=== PATIENT | female | born 1975 | race Caucasian/White ===

== ENCOUNTER 2016-10-25 09:41 | Emergency (ER) | payer OTHER ==
[~2016-10-25] VITALS: Wt 88.0 kg
[~2016-10-25 09:41] MED LIST: ACET500C5 PO; ALBU8.5H3 INH; CETI10CA PO; GUAI118L22 PO; GUAI118L94 PO; HTN meds; HYDR-3498 PO; IBUP-1542 PO; TAMS-14 PO
[2016-10-25] MEDS ORDERED: ALBUTEROL 0.5% (NEB) 2.5 MG/0.5 ML AMP HHN STA (11:13)
[2016-10-25] MEDS ORDERED: ALBU18HF INHALATION (11:24)
[2016-10-25] MEDS ORDERED: AZIT250T94 PO (11:24)
[2016-10-25] MEDS ORDERED: PRED20TA PO (11:24)
--- NOTE | 2016-10-25 11:27 | ERD ---
ER Documentation Chief Complaint Date/Time DATE: 10/25/16 TIME: 11:26 Chief Complaint cough and congestion for the past wk. mild sob. HPI This 40-year-old female presents with a history of a cough for approximately last month. She feels like she might be wheezing. She has productive sputum. She denies fevers, chest pain, vomiting, abdominal pain. She saw her primary doctor but she is not improved with recommendations for [id number] cough syrup. ROS All systems reviewed and are negative except as per history of present illness. Medications Home Meds Active Scripts Azithromycin* (Zithromax*) 250 Mg Tablet, 250 MG PO .ZPACK DIRECTED, #6 TAB TAKE 500 MG (2 TABS) THE FIRST DAY THEN 250 MG (1 TAB) DAYS 2-5 Prov:SYLVESTER DUTTON MD 10/25/16 Albuterol Sulfate* (Ventolin HFA*) 18 Gm Hfa.aer.ad, 2 PUFF INHALATION Q4H, #1 INHALER Prov:SYLVESTER DUTTON MD 10/25/16 Prednisone* (Prednisone*) 20 Mg Tab, 40 MG PO DAILY for 4 Days, TAB Start October 26, 2016 Prov:SYLVESTER DUTTON MD 10/25/16 Ibuprofen* (Motrin*) 600 Mg Tab, 600 MG PO Q6H Y for PAIN AND OR ELEVATED TEMP, #30 TAB Prov:DAVID ROJAS NP 11/04/15 Cetirizine Hcl* (Zyrtec*) 10 Mg Capsule, 10 MG PO DAILY, #30 TAB.CHEW Prov:DAVID ROJAS NP 11/04/15 Guaifenesin-Codeine Phosphate* (Guaifenesin* with Codeine Liq) 120 Ml Liquid, 5 ML PO Q4H for COUGH, #60 ML Prov:DAVID ROJAS NP 11/04/15 Albuterol Sulfate* (Proair HFA*) 8.5 Gm Hfa.aer.ad, 2 PUFF INH Q4, #1 INHALER Prov:CECI MILLER NP 09/09/15 Acetaminophen* (Tylophen*) 500 Mg Capsule, 500 MG PO Q6H Y for PAIN AND OR ELEVATED TEMP, #15 TAB Prov:CECI MILLER NP 09/09/15 Guaifenesin/Codeine Phosphate (CHERATUSSIN AC SYRUP) 118 Ml Liquid, 10 ML PO Q6 , #240 Prov:CECI MILLER [employer] 09/09/15 Ibuprofen* (Ibuprofen*) 600 Mg Tablet, 600 MG PO Q6 for PAIN, #30 TAB Prov:RENASHAHRAM KAUR 06/04/15 Tamsulosin Hcl* (Flomax*) 0.4 Mg Cap.er.24h, 0.4 MG PO HS, #20 CAP Prov:RENASHAHRAM KAUR 06/04/15 Hydrocodone Bit-Acetaminophen* ([place]*) 5-325 Mg Tab, 1 TAB PO Q4H Y for PAIN, # 20 TAB Prov:RENASHAHRAM KAUR 06/04/15 Reported Medications [HTN meds] Unknown Strength No Conflict Check 11/04/15 [none] No Conflict Check 06/10/12 Allergies Allergies: Coded Allergies: No Known Allergy (Verified , 01/01/14) PMhx/Soc History of Surgery: Yes (c/section x2) Anesthesia Reaction: No Hx Neurological Disorder: No Hx Respiratory Disorders: No Hx Cardiac Disorders: Yes (HTN) Hx Psychiatric Problems: No Hx Miscellaneous Medical Probl: No Hx Alcohol Use: No Hx Substance Use: No Hx Tobacco Use: No Physical Exam Vitals Vital Signs Date Time Temp Pulse Resp B/P Pulse Ox O2 Delivery O2 Flow Rate FiO2 10/25/16 09:43 98.6 83 21 167/88 98 Physical Exam Const: [] Alert, [id number], speaking complete sentences. Head: Atraumatic Eyes: Normal Conjunctiva ENT: Normal External Ears, Nose and Mouth. Left TM shows yellow fluid and redness and decreased light reflex. Neck: Full range of motion..~ No meningismus. Resp: Clear to auscultation bilaterally. Scattered wheezing bilaterally without appreciable rales or retractions. Cardio: Regular rate and rhythm, no murmurs Abd: Soft, non tender, non distended. Normal bowel sounds Skin: No petechiae or rashes Back: No midline or flank tenderness Ext: No cyanosis, or edema Neur: Awake and alert Psych: Normal Mood and Affect Results 24 hrs Current Medications Medications (Trade) Dose Ordered Sig/Sowmya Route PRN Reason Start Time Stop Time Status Last Admin Dose Admin Prednisone (Prednisone) 60 mg ONCE ONCE PO 10/25/16 11:30 10/25/16 11:31 Albuterol (Proventil 0.5% (Neb)) 5 mg ONCE STAT HHN 10/25/16 11:13 10/25/16 11:15 DC Procedures/MDM Patient was given albuterol treatment 1, prednisone 60 mg by mouth. Patient maintain normal saturations throughout the ED course without signs of respiratory distress or hypoxemia. Patient had improved breath sounds after observation treatment. Patient has signs and symptoms of bronchitis with wheezing without evidence of hypoxemia signs or symptoms of pneumonia. She will be treated with Zithromax Ventolin and the course prednisone. The patient was stable with no new complaints during the ER course. Clinically, there is no current evidence to suggest meningitis, sepsis, acute abdomen, pneumonia, acute coronary syndrome, pulmonary embolism, or any other emergent condition appearing to require further evaluation or hospitalization. The patient should certainly return for any new or worsening symptoms per the aftercare instructions. They should otherwise follow-up with her primary care doctor for reevaluation this week. Departure Diagnosis: Primary Impression: Otitis media Otitis media type: suppurative Laterality: left Chronicity: acute Recurrence: not specified as recurrent Spontaneous tympanic membrane rupture: without spontaneous rupture Qualified Code: H66.002 - Acute suppurative otitis media of left ear without spontaneous rupture of tympanic membrane, recurrence not specified Additional Impression: URI (upper respiratory infection) URI type: unspecified URI Qualified Code: J06.9 - Upper respiratory tract infection, unspecified type Condition: Stable Patient Instructions: Bronchitis With Wheezing (Adult), Otitis Media, Abx Tx ( Adult) Additional Instructions: Recheck for new or worsening symptoms with primary care doctor. SYLVESTER DUTTON MD Oct 25, 2016 11:27
[2016-10-25] MEDS ORDERED: predniSONE 20 MG TAB PO ONE (11:30)
== END 2016-10-25 13:08 | disposition home or self-care (01) ==
LOC: FTE 09:41
DX: H66.002 Acute suppurative otitis media without spontaneous rupture of ear drum, left ear (principal); J06.9 Acute upper respiratory infection, unspecified; I10 Essential (primary) hypertension
CPT/HCPCS: 94664; J7512; Z7502; Z7610

== ENCOUNTER 2016-11-03 08:09 | Emergency (ER) | payer OTHER ==
[~2016-11-03] VITALS: Ht 152.4 cm; Wt 89.8 kg
[~2016-11-03 08:09] MED LIST changes: +ALBU18HF INHALATION; +AZIT250T94 PO; +PRED20TA PO
[2016-11-03 08:12] VITALS: Ht 152.4 cm; Wt 89.8 kg
[2016-11-03] MEDS ORDERED: ALBUTEROL 0.083% (NEB) 2.5 MG/3 ML AMP NEB STA (08:39)
--- NOTE | 2016-11-03 08:50 | ERD ---
ER Documentation Chief Complaint Date/Time DATE: 11/03/16 Chief Complaint Left ear pain, Cough HPI The patient is a 40-year-old female who presents to the Emergency Department with complaint of a cough for the past month, and left ear pain. The patient reports that her cough is productive of yellow colored sputum, and is associated with intermittent wheezing. The cough tends to be worse at night. She denies any fevers, chills, chest pain, palpitations, shortness of breath. Denies vomiting, abdominal pain or diarrhea. The patient notes that after initial onset of her cough, she began to take [id number] cough syrup, with minimal alleviation of symptoms. She also notes development of left-sided ear pain, which has been persistent for the past 8 days. The patient was seen in the Emergency Department on 10/25/2016 for these symptoms, and was diagnosed with upper respiratory infection/bronchitis and acute otitis media. The patient was discharged home with prescriptions for Ventolin HFA, prednisone and Z-Nitesh. The patient notes that she has taken all antibiotics the medications as prescribed, but continues to experience the left sided ear pain. The pain as pulsating and aching in nature, and radiates into head/occiput. She denies any otorrhea or bloody discharge. Denies any change in hearing, dizziness, dizziness , weakness. She rates her current ear pain as 4 out of 10, though notes that she has not tried any medication for pain relief. The patient also notes that despite taking the prednisone, and intermittently using the inhaler, she still continues to experience intermittent wheezing. She is requesting a breathing treatment at this time. However, denies any chest tightness, chest pain or shortness of breath at this time. Denies neck stiffness. Denies new rashes. Denies sore throat. Denies lower extremity edema. Denies calf swelling or calf tenderness. Denies recent travel. Denies any sick contacts. ROS All systems reviewed and are negative except as per history of present illness. Medications Home Meds Active Scripts Ibuprofen* (Motrin*) 600 Mg Tab, 600 MG PO Q6, #30 TAB Prov:SHAHRAM CHASE PA-C 11/03/16 Amoxicillin/Potassium Clav (Amox-Clav 875-125 mg Tablet) 875-125 mg Tab, 1 TAB PO BID for 10 Days, #20 TAB Prov:SHAHRAM CHASE PA-C 11/03/16 Azithromycin* (Zithromax*) 250 Mg Tablet, 250 MG PO .[place] DIRECTED, #6 TAB TAKE 500 MG (2 TABS) THE FIRST DAY THEN 250 MG (1 TAB) DAYS 2-5 Prov:SYLVESTER DUTTON MD 10/25/16 Albuterol Sulfate* (Ventolin HFA*) 18 Gm Hfa.aer.ad, 2 PUFF INHALATION Q4H, #1 INHALER Prov:SYLVESTER DUTTON MD 10/25/16 Prednisone* (Prednisone*) 20 Mg Tab, 40 MG PO DAILY for 4 Days, TAB Start October 26, 2016 Prov:SYLVESTER DUTTON MD 10/25/16 Ibuprofen* (Motrin*) 600 Mg Tab, 600 MG PO Q6H Y for PAIN AND OR ELEVATED TEMP, #30 TAB Prov:DAVID ROJAS NP 11/04/15 Cetirizine Hcl* (Zyrtec*) 10 Mg Capsule, 10 MG PO DAILY, #30 TAB.CHEW Prov:DAVID ROJAS NP 11/04/15 Guaifenesin-Codeine Phosphate* (Guaifenesin* with Codeine Liq) 120 Ml Liquid, 5 ML PO Q4H for COUGH, #60 ML Prov:DAVID ROJAS NP 11/04/15 Albuterol Sulfate* (Proair HFA*) 8.5 Gm Hfa.aer.ad, 2 PUFF INH Q4, #1 INHALER Prov:CECI MILLER NP 09/09/15 Acetaminophen* (Tylophen*) 500 Mg Capsule, 500 MG PO Q6H Y for PAIN AND OR ELEVATED TEMP, #15 TAB Prov:CECI MILLER NP 09/09/15 Guaifenesin/Codeine Phosphate (CHERATUSSIN AC SYRUP) 118 Ml Liquid, 10 ML PO Q6 , #240 Prov:CECI MILLER NP 09/09/15 Ibuprofen* (Ibuprofen*) 600 Mg Tablet, 600 MG PO Q6 for PAIN, #30 TAB Prov:SHAHRAM CHASE PA-C 06/04/15 Tamsulosin Hcl* (Flomax*) 0.4 Mg Cap.er.24h, 0.4 MG PO HS, #20 CAP Prov:SHAHRAM CHASE RAVINDERToshaAnu 06/04/15 Hydrocodone Bit-Acetaminophen* ([place]*) 5-325 Mg Tab, 1 TAB PO Q4H Y for PAIN, # 20 TAB Prov:SHAHRAM CHASE RAVINDERTita 06/04/15 Reported Medications [HTN meds] Unknown Strength No Conflict Check 11/04/15 [none] No Conflict Check 06/10/12 Allergies Allergies: Coded Allergies: No Known Allergy (Verified , 11/03/16) PMhx/Soc History of Surgery: Yes (c/section x2) Anesthesia Reaction: No Hx Neurological Disorder: No Hx Respiratory Disorders: No Hx Cardiac Disorders: Yes (HTN) Hx Psychiatric Problems: No Hx Miscellaneous Medical Probl: No Hx Alcohol Use: No Hx Substance Use: No Hx Tobacco Use: No Smoking Status: Never smoker Physical Exam Vitals Vital Signs Date Time Temp Pulse Resp B/P Pulse Ox O2 Delivery O2 Flow Rate FiO2 11/03/16 09:54 98.1 87 18 132/78 98 Room Air 11/03/16 09:01 83 18 98 21 11/03/16 08:12 98.1 90 18 145/90 99 Physical Exam GENERAL: Well-developed, well-nourished, female, in no acute distress HEENT: Head is normocephalic, atraumatic. No scleral pallor or icterus. Pupils equal, round and reactive to light. Extraocular movements intact. Conjunctiva pink. Left tympanic membrane is erythematous with dulling of the light reflex, and yellow-colored fluid visualized. No perforation. Right tympanic membrane is clear, with no erythema, effusion or dulling of the light reflex. No mastoid tenderness bilaterally. No otorrhea or bloody discharge. No pharyngeal erythema or exudates. Uvula is midline. No trismus. No stridor. No excessive drooling. Phonation is normal. NECK: Supple. No masses, no tenderness, no lymphadenopathy. Trachea midline. No nuchal rigidity. No meningismus. RESPIRATORY: Scattered wheezing bilaterally, with no rales or rhonchi. No retractions. No nasal flaring. No accessory muscle use. Symmetric expansion. CARDIOVASCULAR: Regular rate and rhythm. S1 and S2 normal. No murmurs. Distal pulses are palpable, 2+ bilaterally. Capillary refill is less than 2 seconds. . EXTREMITIES: No clubbing, cyanosis, or edema. Normal skin perfusion. Moving all extremities. Muscle tone is normal. No focal swelling or erythema. NEUROLOGIC: The patient is alert, awake, and oriented x 3. No focal neurologic deficits. INTEGUMENT: Skin is intact. Warm and dry. No rashes, no petechiae present. PSYCHIATRIC: Normal mood and mentation. Results 24 hrs Current Medications Medications (Trade) Dose Ordered Sig/Sowmya Route PRN Reason Start Time Stop Time Status Last Admin Dose Admin Ibuprofen (Motrin) 600 mg ONCE ONCE PO 11/03/16 09:00 11/03/16 09:01 DC 11/03/16 08:48 Albuterol (Proventil 0.083% (Neb)) 2.5 mg ONCE STAT NEB 11/03/16 08:39 11/03/16 08:42 DC 11/03/16 09:00 Procedures/MDM DIAGNOSTIC TESTS AND INTERPRETATION: PROCEDURE: Chest radiograph series. CLINICAL INDICATION: Cough TECHNIQUE: PA and lateral chest x-ray. COMPARISON: Chest radiograph 11/04/2015 at 03:42 a.m. FINDINGS:The cardiomediastinal silhouette is unremarkable. The lungs and costophrenic angles are clear. The osseous structures are unremarkable. IMPRESSION: Unremarkable chest radiograph series. .Darell Urbano MD, MD Date Time Electronically viewed and signed by .Darell Urbano MD, MD on 2016 09:33 Microbiology INFLUENZA A & B BY EIA Final INFLU A&B BY EIA INFLUENZA A NEGATIVE (Ref Range Neg) INFLUENZA B NEGATIVE (Ref Range Neg) MEDICAL DECISION MAKING: This is a 40-year-old female presenting to the emergency department with complaint of cough, wheezing and left ear pain. Vital signs were stable. On physical examination, the patient had scattered wheezing noted, which cleared after breathing treatment of albuterol provided by respiratory therapy. Additionally, her left tympanic membrane was erythematous, with dulling of the light reflex. Yellow fluid was noted behind the tympanic membrane. Otherwise, no rales or rhonchi. No mastoid tenderness. No perforation noted. No nuchal rigidity. No other significant abnormalities were noted on physical examination. No nasal flaring or signs of respiratory distress. Differential diagnosis includes, but is not limited to, pneumonia, acute respiratory distress syndrome, sinusitis, foreign body, pertussis, upper respiratory infection, asthma, allergic rhinitis, GERD, bronchitis, allergic reaction, influenza, otitis media, otitis externa, meningitis, pharyngitis. No significant acute abnormalities were noted on the diagnostic chest x-ray performed. Influenza A/B negative. No evidence of acute sepsis, bacteremia, dehydration, meningitis or other life-threatening etiology. After rest the patient reports no new complaints. Upon my review and interpretation of the patient's presentation and ER course, I believe the patient's symptoms are most consistent with acute bronchitis and acute left otitis media. The patient had no focal evidence of pneumonia. Patient's neck was supple, with no altered mental status, and therefore I doubt meningitis. Oropharynx was clear, with no erythema, exudates, petechiae, and therefore I doubt pharyngitis. At this time the patient is in stable condition and not experiencing any shortness of breath, wheezing or any signs of respiratory distress, and therefore can be discharged home with a prescription for Augmentin and Ibuprofen and strict return precautions for signs of deteriorating or worsening condition. The patient is advised to follow up with her PMD within 2-3 days for reevaluation and further management or return to the ER sooner for any worsening symptoms. I shared my medical decision making and plan with the patient and she verbally understands and agrees with the plan for further observation and care as an outpatient. At the time of discharge all questions were answered. Departure Diagnosis: Primary Impression: Acute left otitis media Additional Impression: Acute bronchitis Bronchitis organism: unspecified organism Qualified Code: J20.9 - Acute bronchitis, unspecified organism Condition: Stable Patient Instructions: Acute Bronchitis, Bronchitis With Wheezing (Adult), Otitis Media, Abx Tx (Adult) Additional Instructions: Call your primary care doctor TOMORROW for an appointment during the next 2-3 days.See the doctor sooner or return here if your condition worsens before your appointment time. SHAHRAM CHASE PA-C Nov 03, 2016 08:50
[2016-11-03] MEDS ORDERED: IBUPROFEN 600 MG TAB PO ONE (09:00)
--- NOTE | 2016-11-03 09:34 | RADRPT ---
PROCEDURE: Chest radiograph series. CLINICAL INDICATION: Cough TECHNIQUE: PA and lateral chest x-ray. COMPARISON: Chest radiograph 11/04/2015 at 03:42 a.m. FINDINGS: The cardiomediastinal silhouette is unremarkable. The lungs and costophrenic angles are clear. The o sseous structures are unremarkable. IMPRESSION: 1. Unremarkable chest radiograph series. RPTAT: KK .Darell Urbano MD, MD Date Time Electronically viewed and signed by .Darell Urbano MD, MD on 11/03/2016 09:33 .B/
[2016-11-03] MEDS ORDERED: AMOX1TAB10 PO (09:51)
[2016-11-03] MEDS ORDERED: IBUP-1542 PO (09:51)
[2016-11-03 09:54] VITALS: BP 132/78; PULSE 87; RESP 18; TEMP 98.1
== END 2016-11-03 09:55 | disposition home or self-care (01) ==
LOC: FTE 08:09
DX: H66.92 Otitis media, unspecified, left ear (principal); J20.9 Acute bronchitis, unspecified; I10 Essential (primary) hypertension
CPT/HCPCS: 71020; 87400; 94664; Z7502; Z7610

== ENCOUNTER 2017-05-29 09:54 | Emergency (ER) | payer OTHER ==
[~2017-05-29] VITALS: Ht 152.4 cm; Wt 94.0 kg
[~2017-05-29 09:54] MED LIST changes: +AMOX1TAB10 PO
[2017-05-29 09:59] VITALS: Ht 152.4 cm; Wt 94.0 kg
[2017-05-29] MEDS ORDERED: KETOROLAC 60 MG INJ IM STA (10:32)
--- NOTE | 2017-05-29 10:32 | ERD ---
ER Documentation Chief Complaint Date/Time DATE: 05/29/17 TIME: Chief Complaint lower back pain x 3 weeks HPI 41-year-old female presents emergency department for a lower back pain for 3 weeks. Stated it is painful when she bends. LMP: 04/29/2017. A1. Denies headache, dizziness, blurry vision, neck pain, shoulder pain, chest pain , nausea, vomiting, constipation, loss of bowel bladder control, , possibility of being , urinary symptoms, constipation, diarrhea, trauma , injury, falls, numbness or tingling sensation, difficulty walking, fever, chills. No known drug allergies. Past medical history of hypertension. No surgical history. Medication: Denies any prescription medication at home. Social: Works at [employer]. Denies smoking, use of alcoholic beverages, use of illegal drugs. ROS All systems reviewed and are negative except as per history of present illness. Medications Home Meds Active Scripts Ibuprofen* (Motrin*) 800 Mg Tab, 800 MG PO Q8 Y for PAIN AND OR ELEVATED TEMP, # 30 TAB Prov:RONDA ALONSO 05/29/17 Cyclobenzaprine Hcl* (Cyclobenzaprine Hcl*) 10 Mg Tablet, 10 MG PO Q12, #20 TAB Prov:RONDA ALONSO 05/29/17 Ibuprofen* (Motrin*) 600 Mg Tab, 600 MG PO Q6, #30 TAB Prov:SHAHRAM CHASE PA-C 11/03/16 Amoxicillin/Potassium Clav (Amox-Clav 875-125 mg Tablet) 875-125 mg Tab, 1 TAB PO BID for 10 Days, #20 TAB Prov:SHAHRAM CHASE PA-C 11/03/16 Azithromycin* (Zithromax*) 250 Mg Tablet, 250 MG PO .ZPACK DIRECTED, #6 TAB TAKE 500 MG (2 TABS) THE FIRST DAY THEN 250 MG (1 TAB) DAYS 2-5 Prov:SYLVESTER DUTTON MD 10/25/16 Albuterol Sulfate* (Ventolin HFA*) 18 Gm Hfa.aer.ad, 2 PUFF INHALATION Q4H, #1 INHALER Prov:SYLVESTER DUTTON MD 10/25/16 Prednisone* (Prednisone*) 20 Mg Tab, 40 MG PO DAILY for 4 Days, TAB Start October 26, 2016 Prov:SYLVESTER DUTTON MD 10/25/16 Ibuprofen* (Motrin*) 600 Mg Tab, 600 MG PO Q6H Y for PAIN AND OR ELEVATED TEMP, #30 TAB Prov:DAVID ROJAS NP 11/04/15 Cetirizine Hcl* (Zyrtec*) 10 Mg Capsule, 10 MG PO DAILY, #30 TAB.CHEW Prov:DAVID ROJAS NP 11/04/15 Guaifenesin-Codeine Phosphate* (Guaifenesin* with Codeine Liq) 120 Ml Liquid, 5 ML PO Q4H for COUGH, #60 ML Prov:DAVID ROJAS NP 11/04/15 Albuterol Sulfate* (Proair HFA*) 8.5 Gm Hfa.aer.ad, 2 PUFF INH Q4, #1 INHALER Prov:CECI MILLER NP 09/09/15 Acetaminophen* (Tylophen*) 500 Mg Capsule, 500 MG PO Q6H Y for PAIN AND OR ELEVATED TEMP, #15 TAB Prov:CECI MILLER NP 09/09/15 Guaifenesin/Codeine Phosphate (CHERATUSSIN AC SYRUP) 118 Ml Liquid, 10 ML PO Q6 , #240 Prov:CECI MILLER NP 09/09/15 Ibuprofen* (Ibuprofen*) 600 Mg Tablet, 600 MG PO Q6 for PAIN, #30 TAB Prov:SHAHRAM CHASE PA-C 06/04/15 Tamsulosin Hcl* (Flomax*) 0.4 Mg Cap.er.24h, 0.4 MG PO HS, #20 CAP Prov:SHAHRAM CHASE PA-C 06/04/15 Hydrocodone Bit-Acetaminophen* ([place]*) 5-325 Mg Tab, 1 TAB PO Q4H Y for PAIN, # 20 TAB Prov:SHAHRAM CHASE PA-C 06/04/15 Reported Medications [HTN meds] Unknown Strength No Conflict Check 11/04/15 [none] No Conflict Check 06/10/12 Allergies Allergies: Coded Allergies: No Known Allergy (Verified , 11/03/16) PMhx/Soc History of Surgery: Yes (c/section x2) Anesthesia Reaction: No Hx Neurological Disorder: No Hx Respiratory Disorders: No Hx Cardiac Disorders: Yes (HTN) Hx Psychiatric Problems: No Hx Miscellaneous Medical Probl: No Hx Alcohol Use: Yes (social) Hx Substance Use: No Hx Tobacco Use: No Smoking Status: Never smoker Physical Exam Vitals Vital Signs Date Time Temp Pulse Resp B/P Pulse Ox O2 Delivery O2 Flow Rate FiO2 05/29/17 09:59 98.8 81 18 176/88 99 Physical Exam Const: [] Head: Atraumatic Eyes: Normal Conjunctiva ENT: Normal External Ears, Nose and Mouth. Neck: Full range of motion..~ No meningismus. Resp: Clear to auscultation bilaterally Cardio: Regular rate and rhythm, no murmurs Abd: Soft, non tender, non distended. Normal bowel sounds Skin: No petechiae or rashes Back: No midline or flank tenderness. Positive straight leg test bilaterally (right greater than the left). Bilateral hips are stable and unremarkable. No calf tenderness bilaterally. C-spine/T-spine/L-spine are in midline with good and full range of motion and is no swelling/bulging/discoloration/deformity/ point of tenderness. No neurovascular deficits. Ext: No cyanosis, or edema Neur: Awake and alert Psych: Normal Mood and Affect Results 24 hrs Laboratory Tests Test 05/29/17 10:47 Bedside Urine pH (LAB) 7.0 Bedside Urine Protein (LAB) 1+ Bedside Urine Glucose (UA) Negative Bedside Urine Ketones (LAB) Negative Bedside Urine Blood Negative Bedside Urine Nitrite (LAB) Negative Bedside Urine Leukocyte Esterase (L Negative Current Medications Medications (Trade) Dose Ordered Sig/Sowmya Route PRN Reason Start Time Stop Time Status Last Admin Dose Admin Ketorolac Tromethamine (Toradol) 60 mg ONCE STAT IM 05/29/17 10:32 05/29/17 10:33 DC 05/29/17 10:44 Procedures/MDM 41-year-old female presents emergency department for a lower back pain for 3 weeks. Stated it is painful when she bends. LMP: 04/29/2017. A1. Denies headache, dizziness, blurry vision, neck pain, shoulder pain, chest pain , nausea, vomiting, constipation, loss of bowel bladder control, , possibility of being , urinary symptoms, constipation, diarrhea, trauma , injury, falls, numbness or tingling sensation, difficulty walking, fever, chills. No known drug allergies. Past medical history of hypertension. No surgical history. Medication: Denies any prescription medication at home. Social: Works at [employer]. Denies smoking, use of alcoholic beverages, use of illegal drugs. Physical exam: Positive straight leg test bilaterally (right greater than the left). Lateral hips are stable and unremarkable. No calf tenderness bilaterally. C-spine/T-spine/L-spine are in midline with good and full range of motion and is no swelling/bulging/discoloration/deformity/point of tenderness. No neurovascular deficits. Disease process was explained to the patient and family member. They verbalized understanding and agreed with the plan of care. POC urine dip: Reviewed. POC urine : Negative. Treatment: Toradol IM. Reevaluation: Denies headache, dizziness, neck pain, throat pain, difficulty swallowing, shoulder pain, chest pain, back pain, abdominal pain. No episode of emesis here in the emergency department. No loss of bowel and bladder control. No saddle anesthesia. No neurological deficits. C-spine/T-spine/L- spine are in midline with good and full range of motion and is no swelling/ bulging/discoloration/deformity/point of tenderness. No neurovascular deficits. Differential diagnosis: Fracture versus contusion versus sprain versus lumbar strain versus sciatica versus musculoskeletal spasm Final diagnosis: Sciatica Prescription: Flexeril. Motrin Follow-up with primary care physician the next 24-48 hours. Come back here in the emergency department for any new symptoms or any worsening of symptoms. All questions and concerns were answered. Patient verbalized understanding and agreed with the plan of care. Hemodynamically stable on discharge. Departure Diagnosis: Primary Impression: Back pain Additional Impression: Sciatica Condition: Stable Additional Instructions: Follow-up with primary care physician the next 24-48 hours. Come back here in the emergency department for any new symptoms or any worsening of symptoms. All questions and concerns were answered. Patient verbalized understanding and agreed with the plan of care. RONDA ALONSO May 29, 2017 10:32
[2017-05-29 10:40] LABS: URINE BLOOD (Dip) POC Negative (NEGATIVE)
[2017-05-29] MEDS ORDERED: IBUP800T25 PO (10:50)
[2017-05-29] MEDS ORDERED: CYCL-319 PO (10:50)
== END 2017-05-29 11:37 | disposition home or self-care (01) ==
LOC: FTE 09:54
DX: M54.32 Sciatica, left side (principal); I10 Essential (primary) hypertension
CPT/HCPCS: 81003; 96372; J1885; Z7502

== ENCOUNTER 2017-11-10 19:56 | Emergency (ER) | END 2017-11-11 00:01 | disposition home or self-care (01) ==

== ENCOUNTER 2018-10-15 07:41 | Emergency (ER) | payer OTHER ==
[~2018-10-15] VITALS: Wt 96.7 kg
[~2018-10-15 07:41] MED LIST changes: -ALBU8.5H3 INH; +ALBU8.5H8 INH; +AZIT250T PO; -AZIT250T94 PO; +CYCL10TA7 PO; +IBUP800T48 PO; +MECL-77 PO; +ONDA8TAB14 PO
[2018-10-15 07:44] VITALS: BP 184/94; PULSE 98; RESP 17
[2018-10-15] MEDS ORDERED: MECL-77 PO (07:54)
[2018-10-15] MEDS ORDERED: AZIT250T PO (07:54)
[2018-10-15] MEDS ORDERED: ONDA4TAB14 PO (07:54)
--- NOTE | 2018-10-15 07:56 | ERD ---
ER Documentation Chief Complaint Chief Complaint RIGHT EAR PAIN, BLEEDING X3 WEEKS HPI 42-year-old female is here complaining of right ear pain and bleeding from the right ear. She is ruptured her tympanic membrane on the left side before. She denies any recent travel. No trauma. She also states she has had a cough for 3 weeks it is dry and worse at night. She took Tylenol at about 3 AM. She also has been taking Robitussin which helps temporarily. ROS All systems reviewed and are negative except as per history of present illness. Medications Home Meds Active Scripts Ondansetron (Ondansetron Odt) 4 Mg Tab.rapdis, 4 MG PO Q6H PRN for NAUSEA AND/OR VOMITING, #20 TAB Prov:SWETA SOLIMAN PA-C 10/15/18 Meclizine Hcl* (Meclizine Hcl*) 25 Mg Tablet, 25 MG PO Q8H PRN for DIZZINESS, #30 TAB Prov:SWETA SOLIMAN PA-C 10/15/18 Azithromycin* (Zithromax*) 250 Mg Tablet, 250 MG PO .[place] DIRECTED, #6 TAB TAKE 500 MG (2 TABS) THE FIRST DAY THEN 250 MG (1 TAB) DAYS 2-5 Prov:SWETA SOLIMAN PA-C 10/15/18 Meclizine Hcl* (Meclizine Hcl*) 25 Mg Tablet, 25 MG PO Q8H PRN for DIZZINESS, #30 TAB Prov:CHRISTA MCALLISTER PA-C 11/10/17 Ondansetron (Ondansetron Odt) 8 Mg Tab.rapdis, 8 MG PO Q6H PRN for NAUSEA AND/OR VOMITING, #30 TAB Prov:CHRISTA MCALLISTER PA-C 11/10/17 Ibuprofen* (Motrin*) 800 Mg Tab, 800 MG PO Q8 PRN for PAIN AND OR ELEVATED TEMP, #30 TAB Prov:RONDA ALONSO 05/29/17 Cyclobenzaprine Hcl* (Cyclobenzaprine Hcl*) 10 Mg Tablet, 10 MG PO Q12, #20 TAB Prov:RONDA ALONSO 05/29/17 Ibuprofen* (Motrin*) 600 Mg Tab, 600 MG PO Q6, #30 TAB Prov:SHAHRAM CHASE PA-C 11/03/16 Amoxicillin/Potassium Clav (Amox-Clav 875-125 mg Tablet) 875-125 mg Tab, 1 TAB PO BID for 10 Days, #20 TAB Prov:SHAHRAM CHASE PA-C 11/03/16 Azithromycin* (Zithromax*) 250 Mg Tablet, 250 MG PO .[place]og[place]PACK DIRECTED, #6 TAB TAKE 500 MG (2 TABS) THE FIRST DAY THEN 250 MG (1 TAB) DAYS 2-5 Prov:SYLVESTER DUTTON MD 10/25/16 Albuterol Sulfate* (Ventolin HFA*) 18 Gm Hfa.aer.ad, 2 PUFF INHALATION Q4H, #1 INHALER Prov:SYLVESTER DUTTON MD 10/25/16 Prednisone* (Prednisone*) 20 Mg Tab, 40 MG PO DAILY for 4 Days, TAB Start October 26, 2016 Prov:SYLVESTER DUTTON MD 10/25/16 Ibuprofen* (Motrin*) 600 Mg Tab, 600 MG PO Q6H PRN for PAIN AND OR ELEVATED TEMP, #30 TAB Prov:DAVID ROJAS NP 11/04/15 Cetirizine Hcl* (Zyrtec*) 10 Mg Capsule, 10 MG PO DAILY, #30 TAB.CHEW Prov:DAVID ROJAS NP 11/04/15 Guaifenesin-Codeine Phosphate* (Guaifenesin* with Codeine Liq) 120 Ml Liquid, 5 ML PO Q4H for COUGH, #60 ML Prov:DAVID ROJAS NP 11/04/15 Albuterol Sulfate* (Proair HFA*) 8.5 Gm Hfa.aer.ad, 2 PUFF INH Q4, #1 INHALER Prov:CECI MILLER NP 09/09/15 Acetaminophen* (Tylophen*) 500 Mg Capsule, 500 MG PO Q6H PRN for PAIN AND OR ELEVATED TEMP, #15 TAB Prov:CECI MILLER NP 09/09/15 Guaifenesin/Codeine Phosphate (CHERATUSSIN AC SYRUP) 118 Ml Liquid, 10 ML PO Q6, #240 Prov:CECI MILLER NP 09/09/15 Ibuprofen* (Ibuprofen*) 600 Mg Tablet, 600 MG PO Q6 for PAIN, #30 TAB Prov:SHAHRAM CHASE PA-C 06/04/15 Tamsulosin Hcl* (Flomax*) 0.4 Mg Cap.er.24h, 0.4 MG PO HS, #20 CAP Prov:SHAHRAM CHASE PA-C 06/04/15 Hydrocodone Bit-Acetaminophen* ([place]*) 5-325 Mg Tab, 1 TAB PO Q4H PRN for PAIN, #20 TAB Prov:SHAHRAM CHASE PA-C 06/04/15 Reported Medications [HTN meds] Unknown Strength No Conflict Check 11/04/15 [none] No Conflict Check 06/10/12 Allergies Allergies: Coded Allergies: No Known Allergy (Verified , 11/03/16) PMhx/Soc History of Surgery: Yes (c/section x2) Anesthesia Reaction: No Hx Neurological Disorder: No Hx Respiratory Disorders: No Hx Cardiac Disorders: Yes (HTN) Hx Psychiatric Problems: No Hx Miscellaneous Medical Probl: No Hx Alcohol Use: Yes (social) Hx Substance Use: No Hx Tobacco Use: No Smoking Status: Never smoker FmHx Family History: No diabetes Physical Exam Vitals Vital Signs Date Temp Pulse Resp B/P (MAP) Pulse Ox O2 O2 Flow FiO2 Time Delivery Rate 10/15/18 98.4 98 17 184/94 98 07:44 (124) Physical Exam INITIAL VITAL SIGNS: Reviewed by me GENERAL: Awake, alert and oriented x 4, well appearing, nontoxic, speaking in full sentences. No acute distress HEAD: Atraumatic NECK: Supple. No masses. Full range of motion. No meningismus. No midline tenderness. EYES: EOMI. PERRL. EAR: No tenderness over the mastoids bilaterally. No exudates in the canals. TMs nonerythematous. Ruptured tympanic membrane on right side, no bleeding in the ear NOSE: Normal nose. THROAT: No tonilar erythema or edema. No exudates. Uvula midline. No kissing tonsils. RESPIRATORY: Clear to auscultation bilaterally. Symmetric chest wall rise. No wheezing or rales. No accessory muscle use. CV: Regular rate and rhythm. No murmurs, rubs, or gallops. Procedures/MDM Patient has ruptured tympanic membrane. I reassured her that it should heal on her own. She is also had cough for 3 weeks, given duration of symptoms I will treat her with a Z-Nitesh. She also has a history of vertigo she states and would like a refill of her vertigo medication so I also gave her prescription for meclizine and Zofran. Patient counseled regarding my diagnostic impression and care plan. Prior to discharge all questions answered. Pt agrees with treatment plan and understands strict return precautions. Pt is instructed to follow up with primary care provider within 24-48 hours. Precautionary instructions provided including instructions to return to the ER if not improving or for any worsening or changing symptoms or concerns. Departure Diagnosis: Primary Impression: Ruptured tympanic membrane Additional Impressions: Vertigo Bronchitis Condition: Stable Patient Instructions: Vertigo, Unspecified Additional Instructions: Call your primary care doctor TOMORROW for an appointment during the next 1-2 days.See the doctor sooner or return here if your condition worsens before your appointment time. SWETA SOLIMAN PA-C Oct 15, 2018 07:56
== END 2018-10-15 08:40 | disposition home or self-care (01) ==
LOC: FTE 07:41
DX: H72.91 Unspecified perforation of tympanic membrane, right ear (principal); J40 Bronchitis, not specified as acute or chronic; I10 Essential (primary) hypertension

== ENCOUNTER 2018-10-26 17:59 | Emergency (ER) | payer OTHER ==
[~2018-10-26] VITALS: Ht 160 cm; Wt 98.2 kg
[~2018-10-26 17:59] MED LIST changes: +ONDA4TAB14 PO
[2018-10-26 18:10] VITALS: Ht 160 cm; Wt 98.2 kg
--- NOTE | 2018-10-26 21:06 | ERD ---
ER Documentation Chief Complaint Chief Complaint chest pain palpitations and htn today, has been out of meds x 1 week HPI 42-year-old female with a history of hypertension presents the ED complaining of 1 day history of palpitations and sharp, nonradiating chest pain which started after he took Mucinex for chronic cough. Denies shortness of breath, nausea, vomiting or diaphoresis. No leg pain or swelling. Denies abdominal pain, nausea vomiting. No fevers or chills. ROS All systems reviewed and are negative except as per history of present illness. Medications Home Meds Discontinued Reported Medications [HTN meds] Unknown Strength No Conflict Check 11/04/15 [none] No Conflict Check 06/10/12 Discontinued Scripts Ondansetron (Ondansetron Odt) 4 Mg Tab.rapdis, 4 MG PO Q6H PRN for NAUSEA AND/OR VOMITING, #20 TAB Prov:SWETA SOLIMAN PA-C 10/15/18 Meclizine Hcl* (Meclizine Hcl*) 25 Mg Tablet, 25 MG PO Q8H PRN for DIZZINESS, #30 TAB Prov:SWETA SOLIMAN PA-C 10/15/18 Azithromycin* (Zithromax*) 250 Mg Tablet, 250 MG PO .ZPACK DIRECTED, #6 TAB TAKE 500 MG (2 TABS) THE FIRST DAY THEN 250 MG (1 TAB) DAYS 2-5 Prov:SWETA SOLIMAN PA-C 10/15/18 Meclizine Hcl* (Meclizine Hcl*) 25 Mg Tablet, 25 MG PO Q8H PRN for DIZZINESS, #30 TAB Prov:CHRISTA MCALLISTER PA-C 11/10/17 Ondansetron (Ondansetron Odt) 8 Mg Tab.rapdis, 8 MG PO Q6H PRN for NAUSEA AND/OR VOMITING, #30 TAB Prov:CHRISTA MCALLISTER PA-C 11/10/17 Ibuprofen* (Motrin*) 800 Mg Tab, 800 MG PO Q8 PRN for PAIN AND OR ELEVATED TEMP, #30 TAB Prov:RONDA ALONSO F 05/29/17 Cyclobenzaprine Hcl* (Cyclobenzaprine Hcl*) 10 Mg Tablet, 10 MG PO Q12, #20 TAB Prov:KIMBERLYILARONDA LUONG F 05/29/17 Ibuprofen* (Motrin*) 600 Mg Tab, 600 MG PO Q6, #30 TAB Prov:SHAHRAM CHASE PA-C 11/03/16 Amoxicillin/Potassium Clav (Amox-Clav 875-125 mg Tablet) 875-125 mg Tab, 1 TAB PO BID for 10 Days, #20 TAB Prov:SHAHRAM CHASE PA-C 11/03/16 Azithromycin* (Zithromax*) 250 Mg Tablet, 250 MG PO .[place] DIRECTED, #6 TAB TAKE 500 MG (2 TABS) THE FIRST DAY THEN 250 MG (1 TAB) DAYS 2-5 Prov:SYLVESTER DUTTON MD 10/25/16 Albuterol Sulfate* (Ventolin HFA*) 18 Gm Hfa.aer.ad, 2 PUFF INHALATION Q4H, #1 INHALER Prov:SYLVESTER DUTTON MD 10/25/16 Prednisone* (Prednisone*) 20 Mg Tab, 40 MG PO DAILY for 4 Days, TAB Start October 26, 2016 Prov:SYLVESTER DUTTON MD 10/25/16 Ibuprofen* (Motrin*) 600 Mg Tab, 600 MG PO Q6H PRN for PAIN AND OR ELEVATED TEMP, #30 TAB Prov:DAVID ROJAS NP 11/04/15 Cetirizine Hcl* (Zyrtec*) 10 Mg Capsule, 10 MG PO DAILY, #30 TAB.CHEW Prov:DAVID ROJAS NP 11/04/15 Guaifenesin-Codeine Phosphate* (Guaifenesin* with Codeine Liq) 120 Ml Liquid, 5 ML PO Q4H for COUGH, #60 ML Prov:DAVID ROJAS NP 11/04/15 Albuterol Sulfate* (Proair HFA*) 8.5 Gm Hfa.aer.ad, 2 PUFF INH Q4, #1 INHALER Prov:CECI MILLER NP 09/09/15 Acetaminophen* (Tylophen*) 500 Mg Capsule, 500 MG PO Q6H PRN for PAIN AND OR ELEVATED TEMP, #15 TAB Prov:CECI MILLER NP 09/09/15 Guaifenesin/Codeine Phosphate (CHERATUSSIN AC SYRUP) 118 Ml Liquid, 10 ML PO Q6, #240 Prov:CECI MILLER [employer] 09/09/15 Ibuprofen* (Ibuprofen*) 600 Mg Tablet, 600 MG PO Q6 for PAIN, #30 TAB Prov:SHAHRAM CHASE PA-C 06/04/15 Tamsulosin Hcl* (Flomax*) 0.4 Mg Cap.er.24h, 0.4 MG PO HS, #20 CAP Prov:SHAHRAM CHASE PA-C 06/04/15 Hydrocodone Bit-Acetaminophen* ([place]*) 5-325 Mg Tab, 1 TAB PO Q4H PRN for PAIN, #20 TAB Prov:SHAHRAM CHASE PA-C 06/04/15 Allergies Allergies: Coded Allergies: No Known Allergy (Verified , 10/26/18) PMhx/Soc Reviewed History of Surgery: Yes (c/section x2) Anesthesia Reaction: No Hx Neurological Disorder: No Hx Respiratory Disorders: No Hx Cardiac Disorders: Yes (HTN) Hx Psychiatric Problems: No Hx Miscellaneous Medical Probl: No Hx Alcohol Use: Yes (social) Hx Substance Use: No Hx Tobacco Use: No FmHx Sister of unspecified heart disease at the age of 14. No family history of coronary artery disease Physical Exam Vitals Vital Signs Date Temp Pulse Resp B/P (MAP) Pulse Ox O2 O2 Flow FiO2 Time Delivery Rate 10/27/18 78 16 154/98 100 Room Air 01:10 (116) 10/27/18 70 16 168/98 100 Room Air 00:25 (121) 10/26/18 98.6 73 16 153/98 100 Room Air 23:21 (116) 10/26/18 79 17 198/109 100 Room Air 21:00 (138) 10/26/18 99.3 94 18 228/107 99 18:10 (147) Physical Exam Const: Anxious, mild distress. Head: Atraumatic Eyes: Normal Conjunctiva ENT: Normal External Ears, Nose and Mouth. Neck: Full range of motion. No meningismus. No JVD. Resp: Clear to auscultation bilaterally Cardio: Regular rate and rhythm, no murmurs Chest Wall: Reproducible left-sided chest wall tenderness. Abd: Soft, obese, non tender, non distended. No masses or abnormal pulsations. No rebound or guarding. Normal bowel sounds Skin: No petechiae or rashes Back: No midline or flank tenderness Ext: No cyanosis, or edema pulses 4+ in all extremities.. Neur: Awake and alert. No focal deficit Psych: Anxious but not depressed. Affect Result Diagram: 10/26/18213110/26/182131 Results 24 hrs Laboratory Tests Test 10/26/18 21:32 White Blood Count 8.2 10^3/ul Red Blood Count 4.98 10^6/ul Hemoglobin 12.3 g/dl Hematocrit 39.9 % Mean Corpuscular Volume 80.1 fl Mean Corpuscular Hemoglobin 24.7 pg Mean Corpuscular Hemoglobin Concent 30.8 g/dl Red Cell Distribution Width 14.4 % Platelet Count 315 10^3/UL Mean Platelet Volume 10.4 fl Immature Granulocytes % 0.900 % Neutrophils % 66.1 % Lymphocytes % 24.4 % Monocytes % 5.7 % Eosinophils % 2.2 % Basophils % 0.7 % Nucleated Red Blood Cells % 0.0 /100WBC Immature Granulocytes # 0.070 10^3/ul Neutrophils # 5.4 10^3/ul Lymphocytes # 2.0 10^3/ul Monocytes # 0.5 10^3/ul Eosinophils # 0.2 10^3/ul Basophils # 0.1 10^3/ul Nucleated Red Blood Cells # 0.0 10^3/ul D-Dimer 350.22 ng/ml D-Dimer Comment Sodium Level 138 mmol/L Potassium Level 3.7 mmol/L Chloride Level 100 mmol/L Carbon Dioxide Level 26 mmol/L Anion Gap 12 Blood Urea Nitrogen 13 mg/dl Creatinine 0.62 mg/dl Est Glomerular Filtrat Rate mL/min > 60 mL/min Glucose Level 143 mg/dl Calcium Level 9.7 mg/dl Troponin I < 0.012 ng/ml Current Medications Medications Dose Sig/Sowmya Start Time Status Last (Trade) Ordered Route PRN Stop Time Admin Dose Reason Admin Ketorolac 15 mg ONCE STAT 10/26/18 DC 10/26/18 Tromethamine IV 21:23 21:37 (Toradol) 10/26/18 21:25 Oseltamivir 75 mg ONCE ONCE 10/26/18 DC Phosphate PO 23:30 (Tamiflu) 10/26/18 23:30 Procedures/MDM DOCUMENTS REVIEWED: ED nurse, prior records. EKG: Time: 18:13. Sinus rhythm. Ventricular rate 87, normal [place] and QRS int ervals. No acute ST segment elevation or depression. No axis deviation or ectopy. My Interpretation: Normal EKG IMAGING: Chest AP portable: The cardiac silhouette is normal. No effusions or infiltrates. No pneumothorax. MEDICAL DECISION MAKIN-year-old female with a history of hypertension presents the ED complaining of 1 day history of palpitations and sharp, nonradiating chest pain which started after he took Mucinex for chronic cough. CBC unremarkable for leukocytosis, anemia or thrombocytopenia. Chemistry negative for electrolyte abnormalities or renal insufficiency. EKG reveals no evidence of ischemia or dysrhythmia. Troponin is negative. Acute coronary syndrome is unlikely. Patient at low risk for pulmonary embolism and d-dimer is negative hence no further testing is indicated. CXR is negative for pneumonia, congestive heart failure pneumothorax. Poorly controlled hypertension, exacerbated by pain, without evidence of hypertensive emergency improved without intervention. Patient will be restarted on her hydrochlorothiazide pending urgent outpatient follow-up. Chest pain of uncertain etiology with history of same. Low risk for ACC, aortic dissection or pulmonary embolism. Likely musculoskeletal resolved with ketorolac. Stable for discharge with prec autionary instructions and outpatient follow-up as counseled. Counseled patient regarding diagnostic workup, diagnosis and need for followup. Understands to return to ED if symptoms recur, worsen or any other concerns. Departure Diagnosis: Primary Impression: Chest pain with low risk for cardiac etiology Additional Impression: Poorly-controlled hypertension Condition: Serious PUMA QUEVEDO MD Oct 26, 2018 21:06
[2018-10-26] MEDS ORDERED: KETOROLAC 15 MG INJ IV STA (21:23)
[2018-10-26] MEDS ORDERED: OSELTAMIVIR 75 MG CAP PO ONE (23:30)
[2018-10-27 01:10] VITALS: BP 154/98; PULSE 78; RESP 16
== END 2018-10-27 01:12 | disposition home or self-care (01) ==
LOC: E/R 17:59
DX: I10 Essential (primary) hypertension (principal)
CPT/HCPCS: 36415; 71045; 80048; 84484; 85025; 85378; 96374; J1885; Z7502

== ENCOUNTER 2019-01-22 13:31 | Emergency (ER) | payer OTHER ==
[~2019-01-22] VITALS: Ht 139.7 cm; Wt 95.5 kg
[2019-01-22 13:36] VITALS: BP 147/94; PULSE 91; RESP 18; Ht 139.7 cm; Wt 95.5 kg
[2019-01-22] MEDS ORDERED: KETOROLAC 60 MG INJ IM STA (15:05)
[2019-01-22] MEDS ORDERED: NAPR-985 PO (15:06)
[2019-01-22] MEDS ORDERED: CYCL10TA7 PO (15:06)
--- NOTE | 2019-01-22 15:40 | ERD ---
ER Documentation Chief Complaint Chief Complaint left buttocks pain radiating down leg, heard a pop behind left knee HPI 43-year-old female presenting with pain to her left buttocks. Patient states that she was having a pelvic exam when she heard a pop in her left knee which extended to her back. She has a history of chronic back pain in the past. Denies any falls. Denies any numbness or tingling has not taken medication for symptoms. Denies other medical problems. NKDA. Surgical history denies. Social history denies ROS All systems reviewed and are negative except as per history of present illness. Medications Home Meds Active Scripts Cyclobenzaprine Hcl* (Cyclobenzaprine Hcl*) 10 Mg Tablet, 10 MG PO TID, #15 TAB Prov:KATHY ANDERSON PA-C 01/22/19 Naproxen* (Naprosyn*) 500 Mg Tablet, 500 MG PO BID PRN for PAIN AND/OR INFLAMMATION, #30 TAB Prov:KATHY ANDERSON PA-C 01/22/19 Allergies Allergies: Coded Allergies: No Known Allergy (Verified , 10/26/18) PMhx/Soc History of Surgery: Yes (c/section x2) Anesthesia Reaction: No Hx Neurological Disorder: No Hx Respiratory Disorders: No Hx Cardiac Disorders: Yes (HTN) Hx Psychiatric Problems: No Hx Miscellaneous Medical Probl: No Hx Alcohol Use: Yes (social) Hx Substance Use: No Hx Tobacco Use: No FmHx Family History: No diabetes, No coronary disease, No other Physical Exam Vitals Vital Signs Date Temp Pulse Resp B/P (MAP) Pulse Ox O2 O2 Flow FiO2 Time Delivery Rate 01/22/19 97.8 91 18 147/94 98 13:36 (111) Physical Exam GENERAL: The patient is well-appearing, well-nourished, in no acute distress CHEST: Clear to auscultation bilaterally. There are no rales, wheezes or rho nchi. HEART: Regular rate and rhythm. No murmurs, clicks, rubs or gallops. No S3 or S4. BACK: No midline or flank tenderness. EXTREMITIES: Equal pulses bilaterally. There is no peripheral clubbing, cyanosis or edema. No focal swelling or erythema. Full range of motion. Grossly neurovascularly intact. NEUROLOGIC: Alert and oriented. Cranial nerves II through XII intact. Motor strength in all 4 extremities with 5 out of 5 strength. Sensation grossly intact. Normal speech and gait. SKIN: There is no apparent rash or petechiae. The skin is warm and dry. Results 24 hrs Laboratory Tests Test 01/22/19 15:19 POC Beta HCG, Qualitative NEGATIVE Current Medications Medications Dose Sig/Sowmya Start Time Status Last (Trade) Ordered Route PRN Stop Time Admin Dose Reason Admin Ketorolac 60 mg ONCE STAT 01/22/19 DC 01/22/19 Tromethamine IM 15:05 15:27 (Toradol) 01/22/19 15:06 Procedures/MDM ER course: Toradol given in ED. MDM: 43-year-old female presenting with back and knee pain. I have low suspicion for acute fracture dislocation. Patient likely has muscle strain versus nerve inflammation. I do not feel blood work or imaging is indicated. Patient did not have a traumatic fall and I do not feel there is concern for acute fracture dislocation. Patient is discharged with strict ER precautions. All questions answered at discharge Departure Diagnosis: Primary Impression: Pain Condition: Stable Patient Instructions: Reducing Knee Pain and Swelling, Back Pain (Acute Or Chronic) Referrals: CLARISSA SELLERS (PCP) Additional Instructions: FOLLOW UP WITH YOUR PRIMARY CARE PHYSICIAN TOMORROW.Return to this facility if you are not improving as expected. KATHY ANDERSON PA-C Jan 22, 2019 15:40
== END 2019-01-22 15:46 | disposition home or self-care (01) ==
LOC: FTE 13:31
DX: M54.9 Dorsalgia, unspecified (principal); I10 Essential (primary) hypertension
CPT/HCPCS: 81025; 96372; J1885; Z7502

== ENCOUNTER 2019-04-30 19:06 | Emergency (ER) | payer OTHER ==
[~2019-04-30] VITALS: Ht 149.9 cm; Wt 98.1 kg
[~2019-04-30 19:06] MED LIST changes: +ACET1TAB40 PO; -ACET500C5 PO; -ALBU18HF INHALATION; -ALBU8.5H8 INH; -AMOX1TAB10 PO; -AZIT250T PO; -CETI10CA PO; -GUAI118L22 PO; -GUAI118L94 PO; -HTN meds; -HYDR-3498 PO; -IBUP800T48 PO; -MECL-77 PO; +NAPR-985 PO; -ONDA4TAB14 PO; -ONDA8TAB14 PO; -PRED20TA PO; -TAMS-14 PO
[2019-04-30 19:19] VITALS: Ht 149.9 cm; Wt 98.1 kg
[2019-04-30] MEDS ORDERED: IBUPROFEN 600 MG TAB PO ONE (20:30)
[2019-04-30 21:08] VITALS: BP 165/90; PULSE 70; RESP 18
== END 2019-04-30 21:09 | disposition home or self-care (01) ==
LOC: FTE 19:06
DX: S92.902A Unspecified fracture of left foot, initial encounter for closed fracture (principal); I10 Essential (primary) hypertension; W01.0XXA Fall on same level from slipping, tripping and stumbling without subsequent striking against object, initial encounter; Y92.9 Unspecified place or not applicable
CPT/HCPCS: 73630; Z7502; Z7610